=== PATIENT | male | born 1985 | race African-American/Black ===

== ENCOUNTER 2019-07-16 17:19 | Emergency (ER) | payer OTHER ==
[~2019-07-16] VITALS: Ht 165.1 cm; Wt 68.0 kg
[2019-07-16] MEDS ORDERED: IBUPROFEN 600MG TABLET PO ONE (19:00)
[2019-07-16 20:30] VITALS: BP 129/84
== END 2019-07-16 20:31 | disposition home or self-care (01) ==
LOC: ER 17:19
DX: S82.55XA Nondisplaced fracture of medial malleolus of left tibia, initial encounter for closed fracture (principal); Y93.67 Activity, basketball; X58.XXXA Exposure to other specified factors, initial encounter; Y93.89 Activity, other specified
CPT/HCPCS: 29515; 73610; 99283